=== PATIENT | male | born 1985 | race Caucasian/White ===

== ENCOUNTER 2022-04-29 07:14 | Emergency (ER) | payer MEDICAID ==
[~2022-04-29] VITALS: Ht 172.7 cm; Wt 94.9 kg
[2022-04-29 07:16] VITALS: BP 139/99
--- NOTE | 2022-04-29 07:29 | NUR ---
PT AMB TO BED 4.
--- NOTE | 2022-04-29 07:55 | NUR ---
X-Ray at bedside.
--- NOTE | 2022-04-29 08:08 | NUR ---
Dr. Carreon evaluating patient at bedside.
--- NOTE | 2022-04-29 08:25 | NUR ---
ANKUR and FLU swabs obtained. Walked to lab.
--- NOTE | 2022-04-29 08:40 | NUR ---
36 y/o male bib self with c/o mid to right chest pain x today. Patient is also reporting a sore throat. Patient takes Xarelto 20 mg Daily. Denies fever or chills. Medical History: Blood Clot in Lung 2020 NKDA
--- NOTE | 2022-04-29 09:04 | NUR ---
Lab at bedside.
[2022-04-29 09:16] LABS: BASOPHILS % (AUTO) 0.4 % (0.0-2.0); EOSINOPHILS # (AUTO) 0.2 K/uL (0-0.4); EOSINOPHILS % (AUTO) 1.8 % (0.0-4.0); HEMATOCRIT 41.6 % (36-52); HEMOGLOBIN 14.1 g/dL (12.0-18.0); LYMPHOCYTES # (AUTO) 2.5 K/uL (2.0-11.5); LYMPHOCYTES % (AUTO) 24.4 % (20.5-51.1); MEAN CORPUSCULAR HEMOGLOBIN 33 pg (27-31); MEAN CORPUSCULAR HGB CONC 34 g/dL (33-37); MEAN CORPUSCULAR VOLUME 96.1 fL (80-94); MONOCYTES # (AUTO) 0.9 K/uL (0.8-1.0); MONOCYTES % (AUTO) 8.3 % (1.7-9.3); NEUTROPHILS # (AUTO) 6.7 K/uL (1.8-7.7); NEUTROPHILS % (AUTO) 65.1 % (42.2-75.2); PLATELET COUNT (AUTO) 221 K/uL (140-450); RED BLOOD CELL COUNT(AUTO) 4.33 MIL/uL (4.20-6.10); RED CELL DISTRIBUTION WIDTH 14.2 % (11.6-13.7); WHITE BLOOD COUNT (AUTO) 10.3 K/uL (4.8-10.8)
[2022-04-29 09:43] LABS: ALBUMIN 3.5 g/dL (3.4-5.0); ASPARTATE AMINOTRANSFERASE 23 U/L (15-37); CHLORIDE 105 mmol/L (98-107); GFR ARICAN-AMERICAN 109 mL/min (>90); GLUCOSE 95 mg/dL (74-106); SODIUM SERUM 139 mmol/L (136-145); TOTAL BILIRUBIN 0.3 mg/dL (0.0-1.0); UREA NITROGEN, BLOOD 20 mg/dL (7-18)
--- NOTE | 2022-04-29 10:23 | NUR ---
Dr. Carreon re-evaluating patient at bedside.
[2022-04-29] MEDS ORDERED: ONDA-188 PO (10:24)
[2022-04-29] MEDS ORDERED: NAPR-1704 PO (10:24)
--- NOTE | 2022-04-29 10:36 | NUR ---
Patient discharged with v/s stable. Written and verbal after care instructions given. Patient alert, oriented and verbalized understanding of instructions. Ambulatory with steady gait. All questions addressed prior to discharge. ID band removed. Patient advised to follow up with PMD. Rx of Naproxen and Zofran given. Opportunity to ask questions provided and answered. WORK NOTE HANDED TO PATIENT.
--- NOTE | 2022-04-29 10:37 | NUR ---
Chart checked and completed. The patient's care was reviewed and supervised by Jackie Cordova RN.
== END 2022-04-29 10:36 | disposition home or self-care (01) ==
LOC: MED 07:14
DX: B34.9 Viral infection, unspecified (principal); R07.89 Other chest pain; Z20.822 Contact with and (suspected) exposure to COVID-19; F17.200 Nicotine dependence, unspecified, uncomplicated; Z71.6 Tobacco abuse counseling; Z79.899 Other long term (current) drug therapy; Z79.1 Long term (current) use of non-steroidal anti-inflammatories (NSAID)
CPT/HCPCS: 36415; 71045; 80053; 84484; 85025; 85379; 87426; 87804; 93005; 99285; Q0092